=== PATIENT | female | born 2000 | race African-American/Black ===

== ENCOUNTER 2022-07-29 10:53 | Inpatient (IN) ==
[2022-07-29] MEDS ORDERED: CITRIC ACID/SODIUM CITRATE 30 ML UDCUP PO ONE (11:10)
[2022-07-29] MEDS ORDERED: ceFAZolin 2,000 MG/50 ML DUPLEX IV ONE (11:10)
[2022-07-29] MEDS ORDERED: OXYTOCIN/LR 30 UNIT/1,000 ML BAG IV ONE (11:10)
[2022-07-29] MEDS ORDERED: TRANEXAMIC ACID 1,000 MG in SODIUM CHLORIDE 0.9% 100 ML IV PRN (11:10)
[2022-07-29] MEDS ORDERED: FAMOTIDINE 20 MG/2 ML VIAL IV ONE (11:10)
[2022-07-29] MEDS ORDERED: miSOPROStoL 200 MCG TABLET RECTAL PRN (11:10)
[2022-07-29] MEDS ORDERED: METHYLERGONOVINE 0.2 MG/1 ML AMP IM PRN (11:10)
[2022-07-29] MEDS ORDERED: OXYTOCIN 10 UNIT/ML VIAL IM ONE (11:10)
[2022-07-29] MEDS ORDERED: CARBOPROST TROMETHAMINE 250 MCG/ML AMP IM PRN (11:10)
[2022-07-29] MEDS ORDERED: OXYTOCIN/LR 20 UNIT/1,000 ML BAG IV ONE ×2 (11:10→18:57)
[2022-07-29] MEDS ORDERED: LACTATED RINGERS 1,000 ML IV SCH ×2 (11:30→19:00)
[2022-07-29 11:41] LABS: Basophils % 0.3 % (0.0-0.8); Eosinophils % 0.1 % (0.00-10.9); Hematocrit 31.1 VOL% (35.7-47.0); Hemoglobin 9.4 GM/DL (12.0-16.0); Immature Granulocytes % 0.5 %; Immature Granulocytes Absolute 0.04 #; Lymphocytes # 1.7 10*3/uL (1.4-4.0); Lymphocytes % 22.2 % (21.3-54.2); Mean Corpuscular HGB Conc 30.2 GM/DL (32-36); Mean Platelet Volume 8.2 FL (9.6-12.0); Monocytes # 0.6 10*3/uL (0.11-0.8); Monocytes % 8.5 % (1.7-12.7); Neutrophils % 68.4 % (38.7-73.9); Platelet Count 394 T/CUMM (130-400); Red Blood Count 4.04 MC/CUMM (3.8-5.5); Red Cell Distribution Width 14.8 % (9.3-17.3); White Blood Count 7.6 T/CUMM (4-12)
[2022-07-29 12:02] LABS: Albumin 2.5 G/DL (3.4-5.0); Bilirubin,Total 0.5 MG/DL (0.20-1.00); Calcium 9.1 MG/DL (8.5-10.1); Osmolality,Calculated 274.4 MOS/KG (273-304); Potassium 3.7 MMOL/L (3.5-5.1); Total Protein 6.7 G/DL (6.4-8.2)
[2022-07-29] MEDS ORDERED: METHYLERGONOVINE 0.2 MG/1 ML AMP ONE (13:16)
[2022-07-29] MEDS ORDERED: miSOPROStoL 200 MCG TABLET ONE (13:16)
[2022-07-29] MEDS ORDERED: CARBOPROST TROMETHAMINE 250 MCG/ML AMP IM ONE (13:17)
[2022-07-29] MEDS ORDERED: ONDANSETRON 4 MG/2 ML VIAL ONE (14:56)
[2022-07-29] MEDS ORDERED: DEXAMETHASONE 4 MG/1 ML VIAL ONE (14:57)
[2022-07-29] MEDS ORDERED: ACETAMINOPHEN INJ 1,000 MG/100 ML VIAL IV ONE (14:57)
[2022-07-29] MEDS ORDERED: buprenorphine HCL 0.3 MG/ML VIAL ONE (14:57)
[2022-07-29] MEDS ORDERED: ePHEDrine 50 MG/ML VIAL ONE (15:49)
[2022-07-29] MEDS ORDERED: PHENYLEPHRINE 1 MG/10 ML SYRINGE IV ONE ×2 (15:53→16:17)
[2022-07-29] MEDS ORDERED: LACTATED RINGERS 1,000 ML IV ONE (16:01)
[2022-07-29 16:29] LABS: Cord Arterial Blood HCO3 18.3 MMOL/L
[2022-07-29 16:35] LABS: Mucus,Urine Occasional /LPF (Occasional); RBC,Urine <1 /HPF (0-4); Squamous Epithelial Cell,Urine Occasional /HPF (0-10); Urine Appearance Clear (Clear); Urine Color Yellow (Yellow)
[2022-07-29 16:36] LABS: Bilirubin,Urine Negative (Negative); Blood, Urine Negative (Negative); Glucose,Urine (UA) Negative (Negative); Ketones,Urine 80 mg/dL (Negative); Nitrite,Urine Negative (Negative); Protein,Urine Negative (Negative)
[2022-07-29 16:40] LABS: Cord Venous Blood HCO3 20.6 MMOL/L; Cord Venous Blood PCO2 49.5 MMHG; Cord Venous Blood PO2 28.2
[2022-07-29 18:21] LABS: Barbiturates Screen,Urine Negative (Negative); Benzodiazepines Screen,Urine Negative (Negative); Cannabinoid Screen,Urine Negative (Negative); Opiate Screen,Urine Negative (Negative); Phencyclidine Screen,Urine Negative (Negative)
[2022-07-29] MEDS ORDERED: ONDANSETRON 4 MG/2 ML VIAL IV PRN (18:57)
[2022-07-29] MEDS ORDERED: IBUPROFEN 800 MG TABLET PO PRN (18:57)
[2022-07-29] MEDS ORDERED: SIMETHICONE CHEW 80 MG TABLET PO PRN (18:57)
[2022-07-29] MEDS ORDERED: MAGNESIUM HYDROXIDE SUSP 30 ML UDCUP PO PRN (18:57)
[2022-07-29] MEDS ORDERED: ACETAMINOPHEN 325 MG TABLET PO PRN (18:57)
[2022-07-29] MEDS ORDERED: RHO(D) IMMUNE GLOBULIN 300 MCG SYRINGE IM ONE (18:57)
[2022-07-29] MEDS ORDERED: ACETAMINOPHEN 500 MG TABLET PO SCH ×2 (20:00→22:00)
[2022-07-29] MEDS: diphenhydrAMINE CAP 25 MG CAPSULE PO PRN (20:57)
[2022-07-29] MEDS: ACETAMINOPHEN 500 MG TABLET PO SCH (22:11)
[2022-07-29] MEDS: DOCUSATE SODIUM 100 MG CAPSULE PO SCH (22:11)
[2022-07-30 01:16] LABS: Basophils % 0.1 % (0.0-0.8); Hematocrit 28.3 VOL% (35.7-47.0); Hemoglobin 8.7 GM/DL (12.0-16.0); Immature Granulocytes % 0.8 %; Immature Granulocytes Absolute 0.12 #; Lymphocytes % 6.9 % (21.3-54.2); Mean Corpuscular HGB Conc 30.7 GM/DL (32-36); Mean Corpuscular Volume 75.7 FL (87-102); Mean Platelet Volume 8.6 FL (9.6-12.0); Monocytes # 0.5 10*3/uL (0.11-0.8); Monocytes % 3.2 % (1.7-12.7); Platelet Count 387 T/CUMM (130-400); Red Blood Count 3.74 MC/CUMM (3.8-5.5); Red Cell Distribution Width 14.6 % (9.3-17.3); White Blood Count 14.6 T/CUMM (4-12)
[2022-07-30] MEDS: diphenhydrAMINE CAP 25 MG CAPSULE PO PRN ×2 (04:04→10:25)
[2022-07-30] MEDS: ACETAMINOPHEN 500 MG TABLET PO SCH ×2 (04:05→10:22)
[2022-07-30 08:37] LABS: Basophils % 0.1 % (0.0-0.8); Hematocrit 25.2 VOL% (35.7-47.0); Hemoglobin 7.8 GM/DL (12.0-16.0); Immature Granulocytes % 0.5 %; Immature Granulocytes Absolute 0.07 #; Lymphocytes # 1.9 10*3/uL (1.4-4.0); Lymphocytes % 13.2 % (21.3-54.2); Mean Corpuscular Volume 76.4 FL (87-102); Mean Platelet Volume 8.6 FL (9.6-12.0); Monocytes # 1.3 10*3/uL (0.11-0.8); Monocytes % 9.1 % (1.7-12.7); Neutrophils % 77.1 % (38.7-73.9); Platelet Count 349 T/CUMM (130-400); Red Cell Distribution Width 14.8 % (9.3-17.3)
[2022-07-30] MEDS: MULTIVITAMIN (PRENATAL) TABLET PO SCH (10:21)
[2022-07-30] MEDS: FERROUS SULFATE 325 MG TABLET PO SCH ×2 (10:21→20:49)
[2022-07-30] MEDS: DOCUSATE SODIUM 100 MG CAPSULE PO SCH ×2 (10:21→20:49)
[2022-07-30] MEDS ORDERED: RHO(D) IMMUNE GLOBULIN 300 MCG SYRINGE IM ONE (13:23)
[2022-07-30] MEDS ORDERED: oxyCODONE/ACETAMINOPHEN 5-325 MG TABLET PO PRN ×2 (16:23)
[2022-07-31] MEDS: MULTIVITAMIN (PRENATAL) TABLET PO SCH (09:55)
[2022-07-31] MEDS: FERROUS SULFATE 325 MG TABLET PO SCH (09:55)
[2022-07-31] MEDS: DOCUSATE SODIUM 100 MG CAPSULE PO SCH (09:55)
[2022-07-31] MEDS ORDERED: INFLUENZA VIRUS VACCINE 0.5 ML SYRINGE IM ONE (12:34)
[2022-07-31] MEDS ORDERED: DIPH/TET/ACEL PERT BOOSTER VACCINE 0.5 ML VIAL IM ONE (12:34)
[2022-07-31 19:23] VITALS: BP 118/64
== END 2022-07-31 15:35 | disposition home or self-care (01) | DRG 540 ==
LOC: N.LD 10:53 → N.OB 20:37
PROVIDERS: ADMIT Obstetrics & Gynecology; ATTEND Obstetrics & Gynecology
PROC: LDCSECT (ICD-10-PCS; 2022-07-29 14:00)